=== PATIENT | female | born 1985 | race African-American/Black ===

== ENCOUNTER 2019-01-16 23:00 | Inpatient (IN) ==
[2019-01-16] MEDS: LACTATED RINGERS 1,000 ML IV SCH (23:05)
[2019-01-16] MEDS ORDERED: ONDANSETRON 4 MG/2 ML VIAL IV PRN (23:08)
[2019-01-16] MEDS ORDERED: LACTATED RINGERS 500 ML IV PRN (23:08)
[2019-01-16] MEDS ORDERED: BUTORPHANOL 1 MG/ML VIAL IM PRN (23:16)
[2019-01-16] MEDS: TERBUTALINE 1 MG/1 ML VIAL SUBCUT PRN ×2 (23:23→23:56)
[2019-01-16 23:29] LABS: Basophils % 0.1 % (0.0-0.8); Eosinophils # 0.1 10*3/uL (0.0-0.87); Eosinophils % 0.7 % (0.00-10.9); Hematocrit 30.8 VOL% (35.7-47.0); Hemoglobin 10.3 GM/DL (12.0-16.0); Immature Granulocytes % 0.4 %; Immature Granulocytes Absolute 0.04 #; Lymphocytes # 0.9 10*3/uL (1.4-4.0); Lymphocytes % 9.4 % (21.3-54.2); Mean Corpuscular HGB Conc 33.4 GM/DL (32-36); Mean Corpuscular Volume 84.2 FL (87-102); Mean Platelet Volume 10.4 FL (9.6-12.0); Neutrophils % 84.4 % (38.7-73.9); Platelet Count 226 T/CUMM (130-400); Red Blood Count 3.66 MC/CUMM (3.8-5.5); Red Cell Distribution Width 13.2 % (9.3-17.3); White Blood Count 9.6 T/CUMM (4-12)
[2019-01-16] MEDS ORDERED: BETAMETH SODIUM PHOS/ACETATE 30 MG/5 ML VIAL IM SCH (23:30)
[2019-01-16] MEDS ORDERED: BUTORPHANOL 1 MG/ML VIAL IV PRN (23:41)
[2019-01-16 23:44] LABS: Alanine Aminotransferase 23 U/L (13-56); Albumin 2.9 G/DL (3.4-5.0); Alkaline Phosphatase 207 U/L (45-117); Aspartate Amino Transferase 15 U/L (0-37); Bilirubin,Total < 0.39 MG/DL (0.2-1.0); Blood Urea Nitrogen 9 MG/DL (7-18); Calcium 9.4 MG/DL (8.5-10.1); Estimated Glom Filtration Rate 160 ML/MIN; Glucose 123 MG/DL (74-106); Osmolality,Calculated 274.7 MOS/KG (273-304); Total Protein 7.6 G/DL (6.4-8.3)
[2019-01-16] MEDS: AMPICILLIN INJ 1,000 MG in SODIUM CHLORIDE 0.9% 100 ML IV SCH (23:52)
[2019-01-17] MEDS ORDERED: MAGNESIUM SULFATE IV ONE (00:43)
[2019-01-17] MEDS ORDERED: MAGNESIUM SULF DRIP 40 GM/1,000 ML ML IV SCH (01:00)
[2019-01-17] MEDS ORDERED: BUTORPHANOL 2 MG/ML VIAL IV PRN (01:04)
[2019-01-17 01:19] LABS: Apearance,Urine CLEAR (Clear); Bilirubin,Urine Negative (Negative); Blood, Urine Negative (Negative); Glucose,Urine (UA) 50 mg/dL (Negative); Ketones,Urine 20 mg/dL (Negative); Mucus,Urine Few /LPF (Occasional); Nitrite,Urine Negative (Negative); Protein,Urine 30 MG/DL; RBC,Urine 1 /HPF (0-4); Renal Epithelial Cells,Urine Occasional /HPF (<1); Squamous Epithelial Cell,Urine Occasional /HPF (0-10); Urine Color Yellow (Yellow); Urine Specific Gravity 1.021 (1.001-1.035); Urine Urobilinogen < 2.0 EU/DL (0.2-1.0); WBC,Urine 1 /HPF (0-6)
[2019-01-17] MEDS: LACTATED RINGERS 1,000 ML IV SCH (02:33)
[2019-01-17] MEDS ORDERED: NIFEdipine 10 MG CAPSULE PO ONE (03:00)
[2019-01-17] MEDS: NIFEdipine 10 MG CAPSULE PO SCH ×2 (03:18→03:33)
[2019-01-17] MEDS: AMPICILLIN INJ 1,000 MG in SODIUM CHLORIDE 0.9% 100 ML IV SCH (03:28)
== END 2019-01-17 04:05 | disposition hospice, home (50) | DRG 832 ==
LOC: N.LDOUT 23:00 → N.LD 23:01
PROVIDERS: ADMIT Obstetrics & Gynecology; ATTEND Obstetrics & Gynecology